=== PATIENT | male | born 1995 | race Caucasian/White ===

== ENCOUNTER 2018-04-25 22:19 | Emergency (ER) | payer OTHER ==
[2018-04-26] MEDS: SOD CHLORIDE 0.9% 1,000 ML IV (00:10)
[2018-04-26] MEDS: LORAZEPAM 2 MG INJ IV (00:11)
[2018-04-26] MEDS: ONDANSETRON 4 MG INJ IV ×3 (00:11→13:28)
[2018-04-26] MEDS: morphine 4 MG/ML VIAL IV (00:11)
[2018-04-26 00:28] LABS: WHITE BLOOD COUNT 10.2 10^3/ul (4.8-10.8)
[2018-04-26 00:28] LABS: ADD MAN DIFF? NO; BASOPHILS % 0.2 % (0.0-2.0); EOSINOPHILS % 0.1 % (0.0-7.0); HEMATOCRIT 41.3 % (42.0-52.0); HEMOGLOBIN 13.8 g/dl (14.0-18.0); LYMPHOCYTES # 2.8 10^3/ul (0.8-2.9); LYMPHOCYTES % 27.1 % (15.0-51.0); MEAN CORPUSCULAR HEMOGLOBIN 30.5 pg (29.0-33.0); MEAN CORPUSCULAR HGB CONC 33.4 g/dl (32.0-37.0); MEAN CORPUSCULAR VOLUME 91.4 fl (82.0-101.0); MEAN PLATELET VOLUME 10.4 fl (7.4-10.4); MONOCYTE # 0.8 10^3/ul (0.3-0.9); MONOCYTES % 8.2 % (0.0-11.0); NEUTROPHIL # 6.5 10^3/ul (1.6-7.5); PLATELET COUNT 352 10^3/UL (140-415); RED BLOOD COUNT 4.52 10^6/ul (4.70-6.10)
[2018-04-26 00:53] LABS: ALANINE AMINOTRANSFERASE 24 IU/L (13-69); ALBUMIN/GLOBULIN RATIO 1.02; ALKALINE PHOSPHATASE 107 IU/L (42-121); ANION GAP 18 (5-13); ASPARTATE AMINO TRANSFERASE 42 IU/L (15-46); BILIRUBIN,INDIRECT 0.7 mg/dl (0-1.1); BILIRUBIN,TOTAL 0.7 mg/dl (0.2-1.3); BLOOD UREA NITROGEN 18 mg/dl (7-20); CALCIUM 9.7 mg/dl (8.4-10.2); CARBON DIOXIDE 24 mmol/L (21-31); CHLORIDE 99 mmol/L (97-110); CREATININE 0.91 mg/dl (0.61-1.24); Estimated GFR > 60 mL/min (>60); GLUCOSE 151 mg/dl (70-220); LIPASE 404 U/L (23-300); POTASSIUM 3.1 mmol/L (3.5-5.1); SODIUM 141 mmol/L (135-144); TOTAL PROTEIN 9.9 g/dl (6.1-8.1)
[2018-04-26 01:11] LABS: ACETAMINOPHEN < 10.0 ug/ml (10.0-30.0); ETHANOL < 10.0 mg/dl (0-0); SALICYLATE < 1.0 mg/dl (5.0-30.0)
[2018-04-26 04:27] LABS: ADD UMIC YES; UR ASCORBIC ACID NEGATIVE (NEGATIVE); UR BILIRUBIN (Dip) NEGATIVE (NEGATIVE); UR BLOOD (Dip) NEGATIVE (NEGATIVE); UR CLARITY SLIGHTLY CLOUDY (CLEAR); UR COLOR YELLOW (YELLOW); UR GLUCOSE (Dip) NEGATIVE (NEGATIVE); UR KETONES (Dip) NEGATIVE (NEGATIVE); UR LEUKOCYTE ESTERASE (Dip) NEGATIVE Leu/ul (NEGATIVE); UR MUCUS FEW /HPF (NONE SEEN); UR NITRITE (Dip) NEGATIVE (NEGATIVE); UR RBC 0 /HPF (0-5); UR TOTAL PROTEIN (Dip) 1+ mg/dl (NEGATIVE); UR UROBILINOGEN (Dip) NEGATIVE (NEGATIVE); UR WBC 0 /HPF (0-5)
[2018-04-26 04:39] LABS: BARBITURATES Negative (NEGATIVE); CANNABINOIDS Negative (NEGATIVE); COCAINE Negative (NEGATIVE)
[2018-04-26 04:43] LABS: BENZODIAZEPINES Positive (NEGATIVE); OPIATES Positive (NEGATIVE)
[2018-04-26 04:53] LABS: AMPHETAMINE/METHAMPHETAMINE POSITIVE (NEGATIVE)
[2018-04-26] MEDS: HYDROmorphONE 1 MG/ML SYG IV ×2 (08:26→13:30)
[2018-04-26] MEDS: ONDANSETRON (ODT) 4 MG TAB ODT (08:30)
[2018-04-26] MEDS: HYDROmorphONE 2 MG/ML SYG IM ×2 (08:33→22:44)
[2018-04-26] MEDS: HYDROCODONE/APAP (10/325) TAB PO (19:30)
[2018-04-26] MEDS: LORAZEPAM 2 MG INJ IM (22:45)
[2018-04-27] MEDS: HYDROmorphONE 2 MG/ML SYG IM (05:00)
[2018-04-27] MEDS: RISPERIDONE 0.25 MG TAB PO (09:27)
== END 2018-04-27 17:02 | disposition home or self-care (01) ==
LOC: E/R 04-27 17:02
DX: R10.9 Unspecified abdominal pain (principal); J45.909 Unspecified asthma, uncomplicated; F17.210 Nicotine dependence, cigarettes, uncomplicated; F99 Mental disorder, not otherwise specified; Z79.82 Long term (current) use of aspirin
CPT/HCPCS: 36415; 74176; 80053; 80307; 81001; 83690; 85025; 96372; 96374; 96375; 96376; 99285-25